=== PATIENT | female | born 2000 | race Caucasian/White ===

== ENCOUNTER 2018-05-04 10:57 | Emergency (ER) | payer OTHER ==
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
--- NOTE | 2018-05-04 14:31 | CR ---
Right wrist: Four views of the right wrist were obtained. Comparison: No prior study. Joint spaces are maintained. No fracture, dislocation or other bony abnormality is seen. Impression: 1. No abnormality is appreciated on right wrist exam. Diagnostic code #1
== END 2018-05-04 13:15 | disposition home or self-care (01) ==
LOC: JD.ED 10:57
DX: S00.83XA Contusion of other part of head, initial encounter (principal); F17.210 Nicotine dependence, cigarettes, uncomplicated; W22.8XXA Striking against or struck by other objects, initial encounter
CPT/HCPCS: 73110-26-RT; 73110-RT; 99283

== ENCOUNTER 2019-12-31 17:20 | Emergency (ER) | payer OTHER ==
[2019-12-31] MEDS ORDERED: Dexamethasone 10 MG/ML SDV IM ONE (17:36)
[2019-12-31] MEDS ORDERED: Diazepam 2 MG Tab PO ONE (17:36)
[2019-12-31] MEDS ORDERED: HYDROmorphone 1 MG/ML Syringe IM ONE (17:36)
--- NOTE | 2019-12-31 17:43 | EDM.PDOC ---
ED HPI GENERAL MEDICAL PROBLEM - General Chief Complaint: Back Pain or Injury Stated Complaint: [facility] Time Seen by Provider: 12/31/19 17:28 Source of Information: Reports: Patient, RN Notes Reviewed History Limitations: Reports: No Limitations - History of Present Illness INITIAL COMMENTS - FREE TEXT/NARRATIVE: Patient is a 19-year-old female who presents to the ED via [facility] for the evaluation of some lower back pain. Patient notes that on , she sneezed, and felt up pop in her lower mid back, and states she is been having issues with this since then. She did go to the chiropractor on , this seemed to help a little bit, but she notes that she is not been able to walk straight up, and states that laying flat does provide her the best pain control. She went to the chiropractor again on Thursday with little pain control, and states she pretty much laid around the rest of the day. She states that she was able to get up today for a while, took a shower, and then was having some spasm so she laid on the bed to try to wait until the lessened, and then she was unable to get off the bed which led her to call the ambulance to bring her here for evaluation. Patient is not complaining of any chronic back pain or injuries that she has had. She is complaining of some mild numbness and tingling to her bilateral extremities. Patient states that she took some ibuprofen on only and has not taken anything since then. She would rate her pain at a 10 out of 10. Lower Back Pain Score (Numeric/FACES): 10 - Related Data Allergies Allergy/AdvReac Type Severity Reaction Status Date / Time No Known Allergies Allergy Verified 12/31/19 17:26 Home Meds: Home Meds Acetaminophen/HYDROcodone [[place] 325-5 MG] 1 tab PO Q6H PRN #6 tablet 12/31/19 [ Rx] Orphenadrine [Norflex] 100 mg PO BID PRN #20 tab 12/31/19 [Rx] predniSONE 20 mg PO ASDIRECTED #15 tab 12/31/19 [Rx] Past Medical History - Past Health History Medical/Surgical History: Denies Medical/Surgical History - Past Surgical History HEENT Surgical History: Reports: Oral Surgery Social & Family History - Tobacco Use Smoking Status *Q: Never Smoker - Caffeine Use Caffeine Use: Reports: None ED ROS GENERAL - Review of Systems Review Of Systems: Comprehensive ROS is negative, except as noted in HPI. ED EXAM,LOWER BACK PAIN/INJURY - Physical Exam Exam: See Below Exam Limited By: No Limitations General Appearance: Alert, WD/WN, No Apparent Distress Eye Exam: Bilateral Eye: EOMI, Normal Inspection, PERRL Ears: Normal External Exam Nose: Normal Inspection Throat/Mouth: Normal Inspection, Normal Lips, Normal Teeth, Normal Gums, Normal Oropharynx, Normal Voice, No Airway Compromise Head: Atraumatic, Normocephalic Neck: Normal Inspection Respiratory/Chest: No Respiratory Distress, Lungs Clear, Normal Breath Sounds, No Accessory Muscle Use, Chest Non-Tender Cardiovascular: Normal Peripheral Pulses, Regular Rate, Rhythm, No Murmur GI/Abdominal: Normal Bowel Sounds, Soft, Non-Tender, No Distention, No Mass Back Exam: Normal Inspection, Decreased Range of Motion, Muscle Spasm, Paraspinal Tenderness (to level above iliac crests) Extremities: Normal Inspection, Normal Capillary Refill Neurological: Alert, Normal Mood/Affect, Normal Dorsiflexion, CN II-XII Intact ( grossly), Normal Plantar Flexion, No Motor/Sensory Deficits, Straight Leg Raise (L), Straight Leg Raise (R). No: Saddle Anesthesia Psychiatric: Normal Affect, Normal Mood Skin Exam: Warm, Dry, Intact, Normal Color, No Rash Course - Vital Signs Last Recorded V/S: Last Vital Signs Temp 98.7 F 12/31/19 17:23 Pulse 87 12/31/19 17:23 Resp 20 12/31/19 17:23 BP 112/65 12/31/19 17:23 Pulse Ox 100 12/31/19 17:23 - Orders/Labs/Meds Meds: Medications Discontinued Medications Generic Name Dose Route Start Last Admin Trade Name Noah PRN Reason Stop Dose Admin Dexamethasone 10 mg 12/31/19 17:36 12/31/19 17:54 Dexamethasone IM 12/31/19 17:37 10 mg ONETIME ONE Administration Diazepam 2 mg 12/31/19 17:36 12/31/19 17:53 Valium PO 12/31/19 17:37 2 mg ONETIME ONE Administration Hydromorphone HCl 1 mg 12/31/19 17:36 12/31/19 17:54 Dilaudid IM 12/31/19 17:37 1 mg ONETIME ONE Administration - Re-Assessments/Exams Free Text/Narrative Re-Assessment/Exam: 12/31/19 17:41 Patient presents to the ED for some pretty intense back pain. I have ordered 1 mg Dilaudid, 10 mg dexamethasone, and 2 mg Valium at this time for initial management. We will likely send the patient home with a course of prednisone, and some Norflex for outpatient management. Departure - Departure Time of Disposition: 18:40 Disposition: Home, Self-Care 01 Condition: Fair Clinical Impression: Low back pain Qualifiers: Chronicity: acute Back pain laterality: bilateral Sciatica presence: with sciatica Sciatica laterality: bilateral sciatica Qualified Code(s): M54.42 - Lumbago with sciatica, left side - Discharge Information *PRESCRIPTION DRUG MONITORING PROGRAM REVIEWED*: Yes *COPY OF PRESCRIPTION DRUG MONITORING REPORT IN PATIENT ISABELLA: No Prescriptions: Acetaminophen/HYDROcodone [[place] 325-5 MG] 1 tab PO Q6H PRN #6 tablet PRN Reason: Pain Orphenadrine [Norflex] 100 mg PO BID PRN #20 tab PRN Reason: Spasms predniSONE 20 mg PO ASDIRECTED #15 tab Instructions: Back Exercises, [id number] Forms: ED Department Discharge Additional Instructions: You have been evaluated in the ED for your lower back pain. You you were given some medications in the ER to help your pain. This did seem to provide you pretty good relief. Please use ice/heat as tolerated to the affected area. You may take Tylenol 500 mg or ibuprofen 600mg q6 hrs for pain relief. Please do so until you have a tolerable level of pain with activity. Do not exceed 4000mg Tylenol or 3200mg ibuprofen in a 24 hour time period. You were provided with an outpatient course of prednisone, please take as directed. You were also provided with some muscle relaxers, please take 1 tab every 12 hours as needed for further muscle spasms. You were given a few tablets of pain medication for pain not relieved by Tylenol or ibuprofen alone. Please return to ED if your symptoms should change or worsen. Sepsis Event Note - Evaluation Sepsis Screening Result: No Definite Risk - Focused Exam Vital Signs: Vital Signs Temp Pulse Resp BP Pulse Ox 12/31/19 17:23 98.7 F 87 20 112/65 100 Date Exam was Performed: 12/31/19 Time Exam was Performed: 18:40
== END 2019-12-31 18:53 | disposition home or self-care (01) ==
LOC: JD.ED 17:20
DX: M54.42 Lumbago with sciatica, left side (principal); M54.41 Lumbago with sciatica, right side
CPT/HCPCS: 96372; 99283; A9270; J1100; J1170